=== PATIENT | female | born 1985 | race Caucasian/White ===

== ENCOUNTER 2020-12-01 02:58 | Outpatient (CLI) | payer BC, SELFPAY ==
[2020-12-01 13:23] LABS: Hemoglobin A1C 5.1 % (<5.7)
[2020-12-01 13:32] LABS: ALT 35 U/L (14-59); AST 16 U/L (15-37); Albumin 3.7 g/dL (3.4-5.0); Alkaline Phosphatase 94 U/L (46-116); Anion Gap 9.6 mmol/L (3-11); BUN 11 mg/dL (7-18); Bilirubin, Total 0.5 mg/dL (0.2-1.0); CO2 25.4 mmol/L (21.0-32.0); CREATININE 0.8 mg/dL (0.55-1.02); Calcium 8.8 mg/dL (8.5-10.1); Calculated LDL 121 mg/dL (<100); Chloride 107 mmol/L (98-107); Cholesterol 201 mg/dL (<200); Glucose 95 mg/dL (74-106); HDL Cholesterol 61 mg/dL (40-60); Potassium 4.5 mmol/L (3.5-5.1); Sodium 142 mmol/L (136-145); TSH (W/Ref FT4) 1.72 uIU/mL (0.36-3.74); Total Protein 6.7 g/dL (6.4-8.2); Triglyceride 97 mg/dL (<150)
== END 2020-12-01 02:59 | disposition home or self-care (01) ==
LOC: LOS 02:58
PROVIDERS: PCP Nurse Practitioner Family; Visit Provider Nurse Practitioner Family
DX: Z00.00 Encounter for general adult medical examination without abnormal findings (principal); Z13.1 Encounter for screening for diabetes mellitus; Z13.220 Encounter for screening for lipoid disorders; Z13.29 Encounter for screening for other suspected endocrine disorder
CPT/HCPCS: 36415; 80053; 80061; 83036; 84443

== ENCOUNTER 2022-09-21 12:34 | Outpatient (REF) | payer BC, SELFPAY ==
--- NOTE | 2022-09-21 10:20 | PAPFT_PTH ---
PATIENT: Suha Lin LOC: [facility] U#:[id number] AGE/SX: 37/F ROOM: RE09/21/[address]: Rebekah Cantrell NP : 1985 BED: DIS: 09/21/2022 SPEC #: [id number] RECD: 09/21/22 12:42 STATUS: DARWIN REQ #: [id number] DAWOOD: 09/21/22 10:[address]: Rebekah Cantrell NP DEPT: [facility] Cytology RECD BY: Hallie Carter ENTERED: 09/21/22 12:43 SP TYPE: PAPFT OTHR DR: Khris Middleton NP Tissues: 1 - CX/ENDOCX FOR PAP SMEARS Procedures: PAP THIN PREP/[facility] Screening HPV DNA PROBE Comments: [id number]
== END 2022-09-21 12:35 | disposition home or self-care (01) ==
LOC: LBN 12:34
PROVIDERS: PCP Nurse Practitioner Family; Visit Provider Nurse Practitioner Women's Health
DX: Z12.4 Encounter for screening for malignant neoplasm of cervix (principal); Z11.51 Encounter for screening for human papillomavirus (HPV); Z87.42 Personal history of other diseases of the female genital tract
CPT/HCPCS: 88142; 87624

== ENCOUNTER 2022-09-23 16:37 | Outpatient (REF) | payer BC, SELFPAY ==
--- NOTE | 2022-09-23 10:10 | SKI_PTH ---
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
== END 2022-09-23 16:38 | disposition home or self-care (01) ==
LOC: LBN 16:37
PROVIDERS: PCP Nurse Practitioner Family; Visit Provider Otolaryngology Otolaryngology/Facial Plastic Surgery
DX: D49.2 Neoplasm of unspecified behavior of bone, soft tissue, and skin (principal)
CPT/HCPCS: 88305

== ENCOUNTER 2024-04-08 15:03 | Outpatient (CLI) | payer BC, SELFPAY ==
[2024-04-08 11:51] LABS: Hemoglobin A1C 5.2 % (<5.7)
[2024-04-08 11:54] LABS: Calculated LDL 117 mg/dL (<100); Cholesterol 218 mg/dL (<200); HDL Cholesterol 66 mg/dL (40-60); Triglyceride 177 mg/dL (<150)
== END 2024-04-08 15:04 | disposition home or self-care (01) ==
LOC: LBO 15:06
PROVIDERS: PCP Nurse Practitioner Family; Visit Provider Nurse Practitioner Family
DX: Z13.220 Encounter for screening for lipoid disorders (principal); Z13.1 Encounter for screening for diabetes mellitus; R09.89 Other specified symptoms and signs involving the circulatory and respiratory systems; R05.9 Cough, unspecified
CPT/HCPCS: 36415; 80061; 83036

== ENCOUNTER 2024-04-08 15:06 | Outpatient (CLI) | payer BC, SELFPAY ==
--- NOTE | 2024-04-08 10:52 | DI.RAD_ITS ---
Exam(s) XR CHEST 2V PA LATERAL EXAM: XR CHEST 2V PA LATERAL CLINICAL HISTORY: Lingering cough with rhonchi, R09.89-other specified symptoms and signs TECHNIQUE: 2D digital imaging was performed. Two views. COMPARISON: No exams were available for comparison FINDINGS: HEART: Normal size. Aorta: Not dilated. PULMONARY VASCULATURE: Normal. MEDIASTINUM: Unremarkable. LUNGS: Clear. PLEURAL SPACE: No pleural effusion or pneumothorax. BONE:Unremarkable for age. SOFT TISSUES: Unremarkable. IMPRESSION: No acute abnormality. DATA REPOSITORY: RADIATION DOSE DELIVERED:
== END 2024-04-08 15:26 ==
LOC: DI 15:09
PROVIDERS: PCP Nurse Practitioner Family; Visit Provider Nurse Practitioner Family
DX: R05.9 Cough, unspecified (principal)
CPT/HCPCS: 71046

== ENCOUNTER 2025-01-08 13:33 | Outpatient (CLI) | payer BC, SELFPAY ==
[2025-01-08 12:59] LABS: Hemoglobin A1C 5.0 % (<5.7)
[2025-01-08 13:43] LABS: Calculated LDL 111 mg/dL (<100); Cholesterol 204 mg/dL (<200); HDL Cholesterol 61 mg/dL (>or=50); TSH (W/Ref FT4) 1.39 uIU/mL (0.36-3.74); Triglyceride 164 mg/dL (<150)
== END 2025-01-08 13:34 | disposition home or self-care (01) ==
LOC: LBO 13:34
PROVIDERS: PCP Nurse Practitioner Family; Visit Provider Nurse Practitioner Family
DX: Z13.1 Encounter for screening for diabetes mellitus (principal); Z13.220 Encounter for screening for lipoid disorders; E03.9 Hypothyroidism, unspecified
CPT/HCPCS: 36415; 80061; 83036; 84443

== ENCOUNTER 2025-01-08 13:43 | Outpatient (REF) | payer BC, SELFPAY ==
--- NOTE | 2025-01-08 13:20 | PAPFT_PTH ---
PATIENT: Suha Lin LOC: [facility] U#:[id number] AGE/SX: 39/F ROOM: RE01/08/[address]: Rebekah Cantrell NP : 1985 BED: DIS: 01/08/2025 SPEC #: [id number] RECD: 01/08/25 17:12 STATUS: DARWIN REQ #: [id number] DAWOOD: 01/08/25 13:[address]: Óscar NOLASCO,Rebekah [facility]PT[facility] Cytology RECD BY: Hallie Carter ENTERED: 01/08/25 17:13 SP TYPE: PAPFT OTHR DR: Khris Middleton NP Tissues: 1 - CX/ENDOCX FOR PAP SMEARS Procedures: PAP THIN PREP/[facility] Screening HPV DNA PROBE Comments: [id number] (HPV 16 & 18/45)
== END 2025-01-08 13:44 | disposition home or self-care (01) ==
LOC: LBN 13:43
PROVIDERS: PCP Nurse Practitioner Family; Visit Provider Nurse Practitioner Women's Health
DX: Z12.4 Encounter for screening for malignant neoplasm of cervix (principal)
CPT/HCPCS: 88142; 87624